=== PATIENT | female | born 1955 | race Caucasian/White ===

== ENCOUNTER → 2019-12-18 | Outpatient (CLI) | payer BC ==
--- NOTE | 2019-12-18 11:13 | CT ---
EXAMINATION TYPE: CT lumbar spine w con DATE OF EXAM: 12/18/2019 COMPARISON: None. HISTORY: Right side lateral low back pain. CT DLP: 396.9 mGycm Automated exposure control for dose reduction was used. CONTRAST: CT scan of the lumbar is performed with IV Contrast, patient injected with 100 mL of Isovue 300. Enhanced CT of the lumbar spine was performed. Bone and soft tissue window settings are submitted as well as coronal and sagittal reconstructions. There are 5 lumbar-type vertebra. There is slight levoconvex scoliotic curvature centered at L2-L3 le candida on coronal images. Spine is somewhat straightened on sagittal images. Vertebral body heights are maintained. There is moderate disc space narrowing and spurring right anterior L2-L3 level. There is mild to moderate disc space narrowing and spurring left L4-L5 level. Posterior disc herniations are s een effacing the anterior thecal sac at these levels along with L3-L4 level on sagittal image 46. L1-L2: Mild broad disc bulge. L2-L3: [id number] broad disc bulge effacing the anterior thecal sac. L3-L4: Mild to moderate broad disc bulge mildly effacing the anterior thecal sac. L4-L5: Moderate broad disc bulge effacing the anterior thecal sac with mild facet arthropathy bilater ally and ligamentum flavum hypertrophy. [id number] left greater than right bilateral knees infe rior neural foraminal narrowing. L5-S1: Moderate facet arthropathy bilaterally. Spinal canal preserved. Bilateral neural foramina dove nt. Scattered diverticula and visualized portion of left and sigmoid colon. Mild wall thickening proximal to mid left colon along with visualized portion of sigmoid colon without surrounding inflammatory ch damaris presumed product of nondistention, a mild colitis is not entirely excluded. Correlate clinically . IMPRESSION: Loss of normal lumbar curvature with multilevel degenerative changes most prominent L2-L3 and L4-L5 levels as detailed above.
== END | disposition home or self-care (01) ==
LOC: RADCTMAIN 10:20
PROVIDERS: ATTEND Family Medicine
DX: M47.816 Spondylosis without myelopathy or radiculopathy, lumbar region (principal)
CPT/HCPCS: 72132; Q9967